=== PATIENT | female | born 1935 | race Caucasian/White ===

== ENCOUNTER → 2016-11-28 | Outpatient (REF) | payer MEDICARE ==
[~2016-11-28] MED LIST: CPAP; LOSA25TA8 PO; OMEP40CA2 PO; ONDA4INJ48 IM; ROLA1CHW PO; SYNT88TA2 PO
== END ==
LOC: M LAB REF 13:05
PROVIDERS: ATTEND Internal Medicine Medical Oncology
DX: C50.919 Malignant neoplasm of unspecified site of unspecified female breast (principal)

== ENCOUNTER → 2017-04-16 | Outpatient (CLI) | payer MEDICARE ==
--- NOTE | 2017-04-18 09:32 | DEXA ---
AP SPINE L1 - L4 1.188 -0.1 1.8 LT FEMUR TOTAL 1.023 0.1 2.2 RT FEMUR TOTAL 1.012 0.0 2.2 TOTAL BODY TOTAL OTHER DUAL FEMUR FRAX* ASSESSMENT Risk factors: Secondary osteoporosis (premature menopause). 10 year probability of fracture Major osteoporotic fracture 7.5 % Hip fracture 1.0 % COMMENTS: Normal bone densitometry of the spine and hips. FOLLOW-UP: Recommendation for the next bone density exam: 5 years. MTDD
== END ==
LOC: M WHC 11:29
PROVIDERS: ATTEND Internal Medicine Medical Oncology
DX: Z79.811 Long term (current) use of aromatase inhibitors (principal); C50.919 Malignant neoplasm of unspecified site of unspecified female breast; Z78.0 Asymptomatic menopausal state

== ENCOUNTER → 2017-09-18 | Outpatient (REF) | payer MEDICARE | LOC: M LAB REF 16:40 | PROVIDERS: ATTEND Surgery | DX: L89.894 Pressure ulcer of other site, stage 4 (principal); M85.872 Other specified disorders of bone density and structure, left ankle and foot | CPT/HCPCS: 11044; 87070; 87077; 87186; 88304; 88311; G0463 ==

== ENCOUNTER → 2017-10-03 | Outpatient (REF) | payer MEDICARE ==
[2017-10-03 13:25] LABS: MEAN CORPUSCULAR HEMOGLOBIN 29.6 pg (27.0-33.0); MEAN CORPUSCULAR HGB CONC 30.9 g/dl (32.0-36.5); PLATELET COUNT, AUTOMATED 286 10^3/uL (150-450); RED CELL DISTRIBUTION WIDTH 14.5 % (11.5-14.5); WHITE BLOOD COUNT 6.3 10^3/uL (4.0-10.0)
[2017-10-03 13:44] LABS: ERYTHROCYTE SEDIMENTATION RATE 1 mm/hr (0-30)
[2017-10-03 14:02] LABS: ALBUMIN/GLOBULIN RATIO 1.08 (1.00-1.93); ALKALINE PHOSPHATASE 99 U/L (45-117); ALT/SGPT 19 U/L (12-78); ANION GAP 6 MEQ/L (8-16); AST/SGOT 20 U/L (7-37); BILIRUBIN,TOTAL 0.5 MG/DL (0.2-1.0); BLOOD UREA NITROGEN 16 MG/DL (7-18); CALCIUM LEVEL 9.6 MG/DL (8.8-10.2); CARBON DIOXIDE LEVEL 31 MEQ/L (21-32); CHLORIDE LEVEL 103 MEQ/L (98-107); CREATININE FOR GFR 1.05 MG/DL (0.55-1.02); GLOMERULAR FILTRATION RATE 53.4 (>32); GLUCOSE, FASTING 95 MG/DL (83-110); POTASSIUM SERUM 4.6 MEQ/L (3.5-5.1); SODIUM LEVEL 140 MEQ/L (136-145); TOTAL PROTEIN 7.7 GM/DL (6.4-8.2)
== END ==
LOC: M LAB REF 13:07
PROVIDERS: ATTEND Surgery
DX: L89.894 Pressure ulcer of other site, stage 4 (principal); Z79.899 Other long term (current) drug therapy

== ENCOUNTER → 2017-10-10 | Outpatient (CLI) | payer MEDICARE | LOC: M RAD 13:07 | DX: L89.894 Pressure ulcer of other site, stage 4 (principal) | CPT/HCPCS: 93926 ==

== ENCOUNTER 2017-10-15 18:37 | Inpatient (IN) | payer MEDICARE ==
[2017-10-15] MEDS ORDERED: ALPRAZolam 0.25 MG TAB PO (21:00)
[2017-10-15 21:06] LABS: ETHYL ALCOHOL (ETHANOL) 0.003 % (0.000-0.010)
[2017-10-15 21:06] LABS: SALICYLATE LEVEL < 1.7 MG/DL (5.0-30.0)
[2017-10-15 21:57] LABS: AMPHETAMINES LEVEL URINE NEGATIVE (NEGATIVE); BARBITURATES URINE NEGATIVE (NEGATIVE); BENZODIAZEPINES URINE POSITIVE (NEGATIVE); CANNABINOIDS URINE NEGATIVE (NEGATIVE); COCAINE METABOLITE URINE NEGATIVE (NEGATIVE); METHADONE URINE NEGATIVE (NEGATIVE); OPIATES URINE NEGATIVE (NEGATIVE); PHENCYCLIDINE URINE NEGATIVE (NEGATIVE)
[2017-10-15] MEDS ORDERED: MOM 30ML SUSPENSION UDC PO (22:15)
[2017-10-15] MEDS ORDERED: MAALOX 30 ML SUSP *UDC PO (22:15)
[2017-10-15] MEDS ORDERED: ACETAMINOPHEN TAB 650MG DOSE (2X325MG) PO (22:15)
[2017-10-15] MEDS ORDERED: traZODone 50 MG TAB PO (22:15)
[2017-10-16] MEDS ORDERED: MECLIZINE 12.5 MG TAB PO (01:30)
[2017-10-16] MEDS ORDERED: IBUPROFEN 600 MG TAB PO (04:15)
[2017-10-16] MEDS: LEVOTHYROXINE 88MCG TABLET (0.088 MG) PO (06:12)
[2017-10-16 08:30] LABS: BASO % 0.5 % (0.0-1.0); EOS # 0.1 10^3/uL (0.0-0.50); EOS % 1.3 % (0.0-3.0); HEMATOCRIT 45.9 % (36.0-47.0); HEMOGLOBIN 15.3 g/dl (12.0-16.0); IMMATURE GRANULOCYTE % 0.3 % (0-0); LYMPH # 0.9 10^3/uL (1.5-4.5); LYMPH % 14.6 % (24.0-44.0); MEAN CORPUSCULAR HEMOGLOBIN 30.1 pg (27.0-33.0); MEAN CORPUSCULAR HGB CONC 33.3 g/dl (32.0-36.5); MEAN CORPUSCULAR VOLUME 90.4 fl (80.0-96.0); MONO # 0.5 10^3/uL (0.0-0.8); MONO % 8.7 % (0.0-5.0); NEUTROPHILS # 4.6 10^3/uL (1.8-7.7); NEUTROPHILS % 74.6 % (36.0-66.0); PLATELET COUNT, AUTOMATED 179 10^3/uL (150-450); RED BLOOD COUNT 5.08 10^6/uL (4.00-5.40); RED CELL DISTRIBUTION WIDTH 14.3 % (11.5-14.5); WHITE BLOOD COUNT 6.1 10^3/uL (4.0-10.0)
[2017-10-16 09:15] LABS: ALBUMIN/GLOBULIN RATIO 1.38 (1.00-1.93); ALKALINE PHOSPHATASE 81 U/L (45-117); ALT/SGPT 18 U/L (12-78); ANION GAP 7 MEQ/L (8-16); AST/SGOT 18 U/L (7-37); BILIRUBIN,TOTAL 0.8 MG/DL (0.2-1.0); BLOOD UREA NITROGEN 10 MG/DL (7-18); CALCIUM LEVEL 9.3 MG/DL (8.8-10.2); CARBON DIOXIDE LEVEL 31 MEQ/L (21-32); CHLORIDE LEVEL 107 MEQ/L (98-107); CREATININE FOR GFR 0.77 MG/DL (0.55-1.02); GLOMERULAR FILTRATION RATE > 60.0 (>32); GLUCOSE, FASTING 138 MG/DL (83-110); POTASSIUM SERUM 3.3 MEQ/L (3.5-5.1); SODIUM LEVEL 145 MEQ/L (136-145); TOTAL PROTEIN 6.9 GM/DL (6.4-8.2)
[2017-10-16] MEDS: DONEPEZIL 5 MG TAB PO (09:57)
[2017-10-16] MEDS: LETROZOLE 2.5 MG TAB PO (09:57)
[2017-10-16] MEDS: DULoxetine 30 MG CAP (CYMBALTA) PO (09:58)
[2017-10-16] MEDS: PANTOPRAZOLE 40MG TAB (PROTONIX) PO (09:58)
[2017-10-16] MEDS: LOSARTAN 25 MG TAB PO (09:58)
[2017-10-16] MEDS: ALPRAZolam 0.25 MG TAB PO ×2 (09:59→21:45)
[2017-10-16] MEDS: POTASSIUM CHLORIDE 10 MEQ SR TABLET PO (13:20)
[2017-10-16] MEDS: SUCRALFATE SUSP 1GM/10ML UD PO ×3 (13:21→21:46)
[2017-10-16 13:49] LABS: KETONE, URINE AUTO RFX 1+ mg/dL (NEGATIVE); MUCUS, URINE RFX SMALL (NEGATIVE); NITRITE, URINE AUTO RFX NEGATIVE (NEGATIVE); RBC, URINE AUTO RFX 1 /HPF (0-3); SPECIFIC GRAVITY UR AUTO RFX 1.019 (1.002-1.035); SQUAM EPITHELIAL CELL UR AURFX 1 /HPF (0-6); WBC, URINE AUTO RFX 4 /HPF (0-3)
[2017-10-16 13:54] LABS: LEUKOCYTE ESTERASE UR AUTO RFX TRACE (NEGATIVE)
[2017-10-16] MEDS: [UNRECOGNIZED DRUG - OTHER] TOP (18:54)
[2017-10-16] MEDS: FAMOTIDINE 20 MG TAB PO (21:45)
[2017-10-16] MEDS: AMITRIPTYLINE 10 MG TAB PO (21:45)
[2017-10-17] MEDS: LEVOTHYROXINE 88MCG TABLET (0.088 MG) PO (06:11)
[2017-10-17] MEDS: SUCRALFATE SUSP 1GM/10ML UD PO ×2 (06:49→11:31)
[2017-10-17 07:57] LABS: ANION GAP 5 MEQ/L (8-16); BLOOD UREA NITROGEN 9 MG/DL (7-18); CALCIUM LEVEL 8.9 MG/DL (8.8-10.2); CARBON DIOXIDE LEVEL 31 MEQ/L (21-32); CHLORIDE LEVEL 108 MEQ/L (98-107); CREATININE FOR GFR 0.66 MG/DL (0.55-1.02); GLOMERULAR FILTRATION RATE > 60.0 (>32); GLUCOSE, FASTING 101 MG/DL (83-110); POTASSIUM SERUM 3.5 MEQ/L (3.5-5.1); SODIUM LEVEL 144 MEQ/L (136-145)
[2017-10-17] MEDS: PANTOPRAZOLE 40MG TAB (PROTONIX) PO (09:25)
[2017-10-17] MEDS: ALPRAZolam 0.25 MG TAB PO (09:25)
[2017-10-17] MEDS: DULoxetine 30 MG CAP (CYMBALTA) PO (09:26)
[2017-10-17] MEDS: LETROZOLE 2.5 MG TAB PO (09:26)
[2017-10-17] MEDS: DONEPEZIL 5 MG TAB PO (09:26)
[2017-10-17] MEDS: LOSARTAN 25 MG TAB PO (09:33)
[2017-10-17] MEDS: [UNRECOGNIZED DRUG - OTHER] TOP (09:41)
[2017-10-17] MEDS ORDERED: GABAPENTIN 100 MG CAP PO (21:00)
== END 2017-10-17 12:30 | disposition home or self-care (01) | DRG 881 ==
LOC: M ED 18:37 → M ED INP 22:07 → M PSY 23:31
PROVIDERS: Psychiatry & Neurology Psychiatry
DX: F43.21 Adjustment disorder with depressed mood (principal); M86.9 Osteomyelitis, unspecified; L97.528 Non-pressure chronic ulcer of other part of left foot with other specified severity; F41.1 Generalized anxiety disorder; F41.0 Panic disorder [episodic paroxysmal anxiety]; F03.90 Unspecified dementia, unspecified severity, without behavioral disturbance, psychotic disturbance, mood disturbance, and anxiety; E03.9 Hypothyroidism, unspecified; E87.6 Hypokalemia; G47.33 Obstructive sleep apnea (adult) (pediatric); K21.9 Gastro-esophageal reflux disease without esophagitis; I10 Essential (primary) hypertension; Z63.4 Disappearance and death of family member; Z79.899 Other long term (current) drug therapy; Z85.3 Personal history of malignant neoplasm of breast; Z86.73 Personal history of transient ischemic attack (TIA), and cerebral infarction without residual deficits; Z99.89 Dependence on other enabling machines and devices; Z90.710 Acquired absence of both cervix and uterus; Z90.49 Acquired absence of other specified parts of digestive tract; Z98.49 Cataract extraction status, unspecified eye; Z90.13 Acquired absence of bilateral breasts and nipples

== ENCOUNTER → 2017-11-18 | Outpatient (REF) | payer MEDICARE ==
[2017-11-18 13:34] LABS: BASO % 0.4 % (0.0-1.0); EOS # 0.1 10^3/uL (0.0-0.50); EOS % 1.7 % (0.0-3.0); HEMOGLOBIN 14.2 g/dl (12.0-16.0); IMMATURE GRANULOCYTE % 0.4 % (0-0); LYMPH # 1.1 10^3/uL (1.5-4.5); LYMPH % 20.2 % (24.0-44.0); MEAN CORPUSCULAR HEMOGLOBIN 29.3 pg (27.0-33.0); MEAN CORPUSCULAR HGB CONC 32.3 g/dl (32.0-36.5); MEAN CORPUSCULAR VOLUME 90.7 fl (80.0-96.0); MONO # 0.6 10^3/uL (0.0-0.8); MONO % 10.6 % (0.0-5.0); NEUTROPHILS # 3.5 10^3/uL (1.8-7.7); NEUTROPHILS % 66.7 % (36.0-66.0); PLATELET COUNT, AUTOMATED 190 10^3/uL (150-450); RED BLOOD COUNT 4.85 10^6/uL (4.00-5.40); RED CELL DISTRIBUTION WIDTH 13.5 % (11.5-14.5); WHITE BLOOD COUNT 5.3 10^3/uL (4.0-10.0)
[2017-11-18 13:50] LABS: C REACTIVE PROTEIN QUANTITATIV < 0.30 MG/DL (0.00-0.30)
[2017-11-18 13:53] LABS: ERYTHROCYTE SEDIMENTATION RATE 3 mm/hr (0-30)
== END ==
LOC: M SFHCPLAZ 11:28
DX: M86.172 Other acute osteomyelitis, left ankle and foot (principal)
CPT/HCPCS: 86140

== ENCOUNTER → 2018-06-10 | Outpatient (REF) | payer MEDICARE ==
[2018-06-10 14:21] LABS: TOTAL 25(OH) VITAMIN D 31.8 NG/ML (30.0-100.0)
== END ==
LOC: M LAB REF 13:28
DX: Z85.3 Personal history of malignant neoplasm of breast (principal); E55.9 Vitamin D deficiency, unspecified
CPT/HCPCS: 82306

== ENCOUNTER → 2018-07-23 | Outpatient (REF) | payer MEDICARE | LOC: M LAB REF 17:52 | DX: L89.894 Pressure ulcer of other site, stage 4 (principal); L98.491 Non-pressure chronic ulcer of skin of other sites limited to breakdown of skin | CPT/HCPCS: 88304 ==

== ENCOUNTER → 2018-09-14 | Outpatient (CLI) | payer MEDICARE, MEDICAID ==
[2018-09-14 10:54] LABS: HEMATOCRIT 46.7 % (36.0-47.0); HEMOGLOBIN 14.9 g/dl (12.0-15.5); MEAN CORPUSCULAR HEMOGLOBIN 29.6 pg (27.0-33.0); MEAN CORPUSCULAR HGB CONC 31.9 g/dl (32.0-36.5); MEAN CORPUSCULAR VOLUME 92.7 fl (80.0-96.0); PLATELET COUNT, AUTOMATED 171 10^3/uL (150-450); RED BLOOD COUNT 5.04 10^6/uL (4.00-5.40); RED CELL DISTRIBUTION WIDTH 13.8 % (11.5-14.5); WHITE BLOOD COUNT 6.2 10^3/uL (4.0-10.0)
[2018-09-14 11:18] LABS: ANION GAP 8 MEQ/L (8-16); BLOOD UREA NITROGEN 11 MG/DL (7-18); CARBON DIOXIDE LEVEL 30 MEQ/L (21-32); CHLORIDE LEVEL 107 MEQ/L (98-107); CREATININE FOR GFR 0.77 MG/DL (0.55-1.30); GLOMERULAR FILTRATION RATE > 60.0 (>32); GLUCOSE, FASTING 88 MG/DL (70-100); SODIUM LEVEL 145 MEQ/L (136-145)
== END ==
LOC: M LAB 10:21
DX: Z01.812 Encounter for preprocedural laboratory examination (principal); Z79.899 Other long term (current) drug therapy
CPT/HCPCS: 80048

== ENCOUNTER 2018-09-23 11:47 | Day surgery (SDC) | payer MEDICARE, MEDICAID ==
[2018-09-23] MEDS: BUPIVACAINE HCL 0.5% 10 ML VIAL As Ordered (12:45)
[2018-09-23] MEDS: LIDOCAINE 1% MDV 20ML VIAL As Ordered (12:45)
[2018-09-23] MEDS ORDERED: ONDANSETRON 4MG/2ML VIAL (J2405) As Ordered (13:01)
[2018-09-23] MEDS ORDERED: LIDOCAINE 2% INJ 100 MG/5 ML SDV (FOR ANES.) As Ordered (13:01)
[2018-09-23] MEDS ORDERED: PROPOFOL 200 MG/20 ML VIAL As Ordered (13:01)
[2018-09-23] MEDS ORDERED: fentaNYL 100 MCG/2 ML INJECTION (J3010) As Ordered (13:01)
[2018-09-23] MEDS ORDERED: MIDAZOLAM INJ 2 MG/2 ML VIAL (J2250) As Ordered (13:01)
== END 2018-09-23 15:05 | disposition home or self-care (01) ==
LOC: M SDC 11:47
DX: M86.672 Other chronic osteomyelitis, left ankle and foot (principal); L89.894 Pressure ulcer of other site, stage 4; I10 Essential (primary) hypertension; E03.9 Hypothyroidism, unspecified; F41.9 Anxiety disorder, unspecified; F32.9 Major depressive disorder, single episode, unspecified; K21.9 Gastro-esophageal reflux disease without esophagitis; G47.33 Obstructive sleep apnea (adult) (pediatric); K44.9 Diaphragmatic hernia without obstruction or gangrene; G90.09 Other idiopathic peripheral autonomic neuropathy; R29.898 Other symptoms and signs involving the musculoskeletal system; F03.90 Unspecified dementia, unspecified severity, without behavioral disturbance, psychotic disturbance, mood disturbance, and anxiety; I69.911 Memory deficit following unspecified cerebrovascular disease; R06.83 Snoring; J30.89 Other allergic rhinitis; Z88.5 Allergy status to narcotic agent; Z85.3 Personal history of malignant neoplasm of breast; Z79.899 Other long term (current) drug therapy; Z90.13 Acquired absence of bilateral breasts and nipples; Z92.3 Personal history of irradiation
CPT/HCPCS: 28122

== ENCOUNTER 2020-07-13 10:24 | Inpatient (IN) | payer MEDICARE ==
[~2020-07-13] VITALS: Ht 162.6 cm; Wt 92.2 kg
[~2020-07-13 10:24] MED LIST changes: +ACET1TAB55 PO; +ACET500T15 PO; +ACIDTAB3 PO; +AMIT10TA PO; +ARIC1TAB PO; +BUSP5TA PO; +CARA1TAB6 PO; +CARB25TA9 PO; +CYMB60CA3 PO; +DIOV40TA PO; +DULO30CA9 PO; +FAMO20TA PO; +FEMA2.5T4 PO; +GABA-1171 PO; +GABA-843 PO; +IBUP-1022 PO; +KEFL500C17 PO; +LETR2.5T2 PO; +LOPE2CA PO; +LOSA25TA14 PO; -LOSA25TA8 PO; +MECL12.589 PO; +META0.52 PO; +NEXI20CA PO; +OMEP-358 PO; -OMEP40CA2 PO; +OMEP40CA97 PO; +ONDA4INJ4 IM; -ONDA4INJ48 IM; +PANT40TA29 PO; +RANI15TA PO; +SUCR1ORA2 PO; +SUCR1TA PO; +VITA2000 PO; +XANA0.25 PO; +ZOFR4TAB16 PO
[2020-07-13] MEDS ORDERED: PANT40TA29 PO (10:42)
[2020-07-13] MEDS ORDERED: VALS1TAB67 PO (10:42)
[2020-07-13] MEDS ORDERED: AMLO1TAB24 PO (10:42)
[2020-07-13] MEDS ORDERED: POTA20TA6 PO (10:42)
[2020-07-13] MEDS ORDERED: QUET5TAB PO (10:42)
[2020-07-13 11:59] LABS: BASO % 0.2 % (0.0-1.0); EOS % 0.2 % (0.0-3.0); HEMATOCRIT 45.7 % (36.0-47.0); HEMOGLOBIN 14.7 g/dl (12.0-15.5); LYMPH % 9.2 % (24.0-44.0); MEAN CORPUSCULAR HEMOGLOBIN 30.4 pg (27.0-33.0); MEAN CORPUSCULAR HGB CONC 32.2 g/dl (32.0-36.5); MEAN CORPUSCULAR VOLUME 94.6 fl (80.0-96.0); MONO # 1.9 10^3/uL (0.0-0.8); NEUTROPHILS # 7.7 10^3/uL (1.5-8.5); NEUTROPHILS % 72.1 % (36.0-66.0); PLATELET COUNT, AUTOMATED 166 10^3/uL (150-450); RED BLOOD COUNT 4.83 10^6/uL (4.00-5.40); WHITE BLOOD COUNT 10.7 10^3/uL (4.0-10.0)
[2020-07-13 12:11] LABS: INR 1.04; PROTHROMBIN TIME 13.8 SECONDS (12.5-14.3)
[2020-07-13 12:21] LABS: ERYTHROCYTE SEDIMENTATION RATE 9 mm/hr (0-30)
[2020-07-13 12:33] LABS: ALBUMIN 3.5 GM/DL (3.2-5.2); ALT/SGPT 25 U/L (12-78); BLOOD UREA NITROGEN 9 MG/DL (7-18); CALCIUM LEVEL 9.3 MG/DL (8.8-10.2); CARBON DIOXIDE LEVEL 31 MEQ/L (21-32); CHLORIDE LEVEL 103 MEQ/L (98-107); CREATININE FOR GFR 0.84 MG/DL (0.55-1.30); GLOMERULAR FILTRATION RATE > 60.0 (>32); GLUCOSE, FASTING 108 MG/DL (70-100); POTASSIUM SERUM 5.2 MEQ/L (3.5-5.1); SODIUM LEVEL 136 MEQ/L (136-145); TOTAL PROTEIN 7.2 GM/DL (6.4-8.2)
--- NOTE | 2020-07-13 12:45 | REPVR ---
PROCEDURE INFORMATION: Exam: XR Left Foot Complete Exam date and time: 07/13/2020 12:30 PM Age: 84 years old Clinical indication: Condition or disease; Foot deformities; Type not specified; Left; Prior surgery; Surgery date: 6+ months; Surgery type: Granddaughter said she has had foot trouble her entire life with bones removed many years ago. Did not know her underlying disease process. ; Additional info: Swelling of foot, ulcer to 1st toe TECHNIQUE: Imaging protocol: XR Left foot. Views: 3 or more views. COMPARISON: XA Foot, Ap, Lat 09/23/2018 2:01 PM FINDINGS: Bones/joints: There has been transmetatarsal amputations involving the 4th and 5th digits. There has been phalangeal resection of the 3rd digit. The toes are clenched of the 1st and 2nd digits. There is diffuse osteopenia. Extensive arthritic changes seen throughout the midfoot, hindfoot and forefoot including the tibiotalar joint. Soft tissues: There is no soft tissue air or definite ulceration. IMPRESSION: Osteopenia, arthritis and prior amputations. Electronically signed by: Mendoza Woody On 07/13/2020 12:44:43 PM
[2020-07-13] MEDS ORDERED: BACT800T5 PO (12:54)
[2020-07-13] MEDS ORDERED: DOCU100C16 PO (12:54)
[2020-07-13] MEDS ORDERED: GABA-1171 PO (12:54)
[2020-07-13] MEDS ORDERED: PIPERACILLIN/TAZOBACTAM SOD 3.375 GM in D5W MINI-BAG PLUS 50 ML IV ONE (13:00)
[2020-07-13] MEDS ORDERED: VANCOMYCIN HCL 750 MG, VIAL MATE ADAPTER 1 EACH in D5W 250 ML IV ONE ×6 (13:00)
[2020-07-13] MEDS ORDERED: VANCOMYCIN HCL 2,000 MG in D5W 500 ML IV ONE (13:00)
[2020-07-13] MEDS ORDERED: VITA500T41 PO (13:02)
[2020-07-13] MEDS ORDERED: ASPI81TA86 PO (13:02)
[2020-07-13] MEDS ORDERED: NYST10CR TOP (13:02)
[2020-07-13 16:15] VITALS: BP 146/56
--- NOTE | 2020-07-13 17:09 | HPEPDOC ---
[facility] Medical History & Physical Date of Admission Jul 13, 2020 Date of Service: Jul 13, 2020 History and Physical CHIEF COMPLAINT: left hallux nonhealing ulcer / osteomyelitis HISTORY OF PRESENTING ILLNESS: (history obtained from son-in-law at the bedside) 84 y/o F with chronically deformed left foot, Dementia, bilateral breast cancer, cared for by her daughter and son-in-law, but lives in assisted living housing, presents for amputation of the left hallux due to nonhealing ulcer with failed outpatient antibiotics and debridement. Patient was followed at the wound care center by Dr. Ge in the past,and had left partial incisional metatarsals of the 4-5 digits in 09/[address] Addison. She was seen in her head well puller's office today, and referred to [facility] for admission for amputation of the left hallux. She denies fever, chills, pain, purulent discharge,or worsening edema. In the ER, she was afebrile, normal wbc and esr, but 3.7 crp, given iv vanco and iv zosyn with plans for amputation on Friday by Dr. Addison PMHx: Hypertension Hypothyroidism Dementia/memory loss Anxiety Depression GERD/HH/chronic nausea History of breast cancer. right mastectomy left lumpectomy with radiation and left mastectomy due to local recurrence Chronic left foot wound. Stage IV ulcer. Osteomyelitis. H/O TIA EMILIE. CPAP. H/O neuropathy PSHX: Hysterectomy cholecystectomy cataract surgery Right mastectomy 1996 Left mastectomy 2017 Amputation left 3 through 5 toes. Chronic left foot wound status post debridement as per Dr. Ge SOCHX: Resides in:Assisted living Marital Status: Kids: 4 Employment: Retired Tobacco use: Denies ETOH: Denies Illicit Drugs: Denies IV Drug Use: Denies Tattoos done unprofessionally: Denies HCP-daughter and son-in-law FAMHX: Siblings: One sister , unknown Children: Alive, well ROS: As noted in HPI, otherwise 11pt ROS of systems reviewed and unremarkable. PE: VITALS : SEE BELOW GEN: 81 yo F, appears stated age. Well-nourished, well developed. No acute distress. Alert and oriented x 2. Pleasant, interactive. no respiratory distress. speaks in full sentences. HEENT: no pallor or jaundice. face is symmetric. tongue is midline. Normocephalic, atraumatic. Pupils are equal, round, and reactive to light. Extraocular movements are intact. No nystagmus appreciated. Sclera are nonicteric. no jaundice. Conjunctiva without injection. Nose midline. Nasal turbinates without bogginess. EACs both patent BL. TMs both visualized and [place]ehan with good cone of light, no bulging or erythema. No facial asymmetry. Moist mucous membranes. Dentition fair. Pharynx pink and moist, no cobblestoning. Neck supple, trachea midline. No lymphadenopathy or thyromegaly appreciated. CHEST: Regular rate and rhythm, +S1, +S2. AEBE. LUNGS: Clear to auscultation bilaterally. No wheezes, rales, or rhonchi. Breathing appears symmetric and easy. Patient is speaking in full sentences. No accessory muscle use. ABD: Round, soft, non-tender, non-distended. +Bowel sounds throughout. No rebound or guarding. No costovertebral angle tenderness. EXT: Pulses 2+ bilaterally dorsalis pedis and radial. (+) b/l 1+ pitting edema. left 4-5 partial metatarsal amputation. left medial hallux ulcer with serous drainage no purulence some erythema no induration nontender. SKIN: [place], dry, warm. No rashes. LABORATORY DATA: see below ASSESSMENT AND PLAN: 84F with nonhealing left toe ulcer / osteomyelitis sent to [facility] for amputation. 1.Left hallux osteomyelitis- normal esr wbc afebrile, but abn crp. received iv vanco and iv zosyn in ER renally dosed. will continue on iv vancomycin and iv ceftriaxone, bacid, elevate LE while supine. daily dressing changes per head well puller recommendation. Dr. Addison consulted for amputation scheduled for Friday morning. MRI left foot as the patient will not tolerate it. ASA discontinued temporarily preoperatively. compression stockings for now. PT/OT postoperatively 2.Chronic peripheral neuropathy-has orthotic shoes, but increased risk of injury due to numbness. 3. Preoperative Medical clearance-hold aspirin. denies acute ischemic symptoms such as sob, chest pain, rpessure, tightness, and has no signs of chf. She is medically optimized to proceed to surgery on Friday. no anticoagulation or antiplatelets. 4. Hyperkalemia- calcium gluconate, kayexalate, repeat bmp. 5. Hypertension-resume home meds with holding parameters 6. Hypothyroidism-on synthroid 7. Chronic Dementia/memory loss-resumed home meds. at risk of sundowning. If patient becomes agitated or combative, avoid sedatives or hypnotics. Family is willing to calm the patient down, and requests to be called. 8. Anxiety/Depression, chronic-no suicidal ideation 9. GERD/HH-on PPI 10. History of breast cancer. right mastectomy left lumpectomy with radiation and left mastectomy due to local recurrence, on surveillance at the [facility] 11. H/O TIA-due to planned left hallux amputation, hold ASA. 12. Obesity BMI 34.9 EMILIE. CPAP-complicating care code status: DNR DNI. Vital Signs Vital Signs Date Time Temp Pulse Resp B/P (MAP) Pulse Ox O2 Delivery O2 Flow Rate FiO2 07/13/20 16:03 98.0 80 18 136/70 (92) 98 Room Air Laboratory Data Labs 24H Laboratory Tests 2 07/13/20 11:40: Immature Granulocyte % (Auto) 0.3, Neutrophils (%) (Auto) 72.1H, Lymphocytes (%) (Auto) 9.2L, Monocytes (%) (Auto) 18.0H, Eosinophils (%) (Auto) 0.2, Basophils (%) (Auto) 0.2, Neutrophils # (Auto) 7.7, Lymphocytes # (Auto) 1.0L, Monocytes # (Auto) 1.9H, Eosinophils # (Auto) 0.0, Basophils # (Auto) 0.0, Nucleated Red Blood Cells % (auto) 0.0, Erythrocyte Sedimentation Rate 9, Prothrombin Time 13.8, Prothromb Time International Ratio 1.04, Anion Gap 2L, Glomerular Filtration Rate > 60.0, Lactic Acid Level 1.5, Calcium Level 9.3, Total Bilirubin 1.0, Aspartate Amino Transf (AST/SGOT) 44H, Alanine Aminotransferase (ALT/SGPT) 25, Alkaline Phosphatase 101, C-Reactive Protein, Quantitative 3.70H, Total Protein 7.2, Albumin 3.5, Albumin/Globulin Ratio 0.9L 07/13/20 13:15: Urine Color YELLOW, Urine Appearance CLEAR, Urine pH 7.0, Urine Specific [place] 1.012, Urine Protein NEGATIVE, Urine Glucose (UA) NEGATIVE, Urine Ketones TRACEH, Urine Blood NEGATIVE, Urine Nitrite NEGATIVE, Urine Bilirubin NEGATIVE, Urine Urobilinogen 4.0H, Urine Leukocyte Esterase TRACEH, Urine WBC (Auto) 3, Urine RBC (Auto) 2, Urine Hyaline Casts (Auto) 0, Urine Bacteria (Auto) NEGATIVE, Urine Squamous Epithelial Cells 1, Urine Sperm (Auto) CBC/BMP Laboratory Tests 07/13/20 11:40 Microbiology Microbiology 07/13/20 Blood Culture, Received Pending 07/13/20 Urine Culture, Received Pending 07/13/20 Blood Culture, Received Pending Home Medications Scheduled Alprazolam (Xanax) 0.25 Mg Tab, 0.25 MG PO BID Amlodipine Besylate (Amlodipine Besylate) 5 Mg Tablet, 5 MG PO DAILY Aspirin (Aspir 81) 81 Mg Tablet.dr, 81 MG PO DAILY Buspirone HCl (Buspirone HCl) 5 Mg Tab, 5 MG PO TID Cyanocobalamin (Vitamin B-12) (Vitamin B-12) 500 Mcg Tablet, 500 MCG PO DAILY Docusate Sodium (Docusate Sodium) 100 Mg Capsule, 100 MG PO BID Donepezil HCl (Aricept) 5 Mg Tab, 5 MG PO QHS Duloxetine Hcl (Cymbalta) 60 Mg Cap, 60 MG PO DAILY Gabapentin (Gabapentin) 100 Mg Capsule, 100 MG PO TID Levothyroxine Sodium (Synthroid) 88 Mcg Tab, 88 MCG PO DAILY Nystatin (Nystatin) 15 Gm Cream..g., 1 APLCT TOP BID APPLY TO RASH ON LEG Pantoprazole Sodium (Pantoprazole Sodium) 40 Mg Tablet.dr, 40 MG PO DAILY Potassium Chloride (Potassium Chloride) 20 Meq Tab.er.prt, 20 MEQ PO QPM Quetiapine Fumarate (Quetiapine Fumarate) 50 Mg Tablet, 50 MG PO QHS Sucralfate (Carafate) 1 Gm Tab, 1 GM PO BID 1 HOUR BEFORE BREAKFAST AND DINNER Sulfamethoxazole/Trimethoprim (Bactrim Ds Tablet) 1 Each Tablet, 1 TAB PO BID FOR 5 DAYS, STARTED 07/12 AT 1700 Valsartan (Valsartan) 160 Mg Tablet, 160 MG PO DAILY Allergies Coded Allergies: SEASONAL ALLERGIES (Verified Allergy, Mild, 09/16/18) A-FIB/CHADSVASC A-FIB History Current/History of A-Fib/PAF?: No Current PO Anticoag Therapy: No Age/Risk Factor Scoring CHADSVASC: CHADSVASC Response (Comments) Value Age Risk Factor Age >/= 75 years old 2 Gender Risk Factor Female 1 Hx of CHF No 0 Hx of HTN Yes 1 Hx of Stroke/TIA/or VTE Yes 2 Hx of Diabetes No 0 Hx of Vascular Disease No 0 Total 6 Treatment Treatment ordered: NONE Reason Anticoagulant not given: Not indicated/[id number] LILLIANA YBARRA MD Jul 13, 2020 16:56
[2020-07-13] MEDS: SUCRALFATE 1 GM TAB PO SCH (18:29)
[2020-07-13] MEDS: busPIRone 5 MG TAB PO SCH (20:02)
[2020-07-13] MEDS: DONEPEZIL 5 MG TAB PO SCH (20:02)
[2020-07-13] MEDS: QUEtiapine FUMARATE 50 MG TAB PO SCH (20:02)
[2020-07-13] MEDS: ALPRAZolam 0.25 MG TAB PO SCH (20:02)
[2020-07-13] MEDS: DOCUSATE SODIUM 100 MG CAP PO SCH (20:02)
[2020-07-13] MEDS: GABAPENTIN 100 MG CAP PO SCH (20:03)
[2020-07-13] MEDS: POTASSIUM CHLORIDE 10 MEQ SR TABLET PO SCH (20:56)
[2020-07-13 22:00] VITALS: BP 140/58
[2020-07-14] MEDS: LEVOTHYROXINE 88MCG TABLET (0.088 MG) PO SCH (05:49)
[2020-07-14] MEDS: VANCOMYCIN HCL 1,000 MG, VIAL MATE ADAPTER 1 EACH in D5W 250 ML IV SCH (05:49)
[2020-07-14 06:00] VITALS: BP 136/57
[2020-07-14 06:38] LABS: BASO % 0.3 % (0.0-1.0); EOS # 0.1 10^3/uL (0.0-0.5); HEMATOCRIT 43.1 % (36.0-47.0); HEMOGLOBIN 13.8 g/dl (12.0-15.5); LYMPH # 1.2 10^3/uL (1.5-5.0); LYMPH % 15.4 % (24.0-44.0); MEAN CORPUSCULAR HEMOGLOBIN 30.3 pg (27.0-33.0); MEAN CORPUSCULAR VOLUME 94.7 fl (80.0-96.0); MONO # 1.3 10^3/uL (0.0-0.8); MONO % 15.9 % (0.0-5.0); NEUTROPHILS # 5.3 10^3/uL (1.5-8.5); NEUTROPHILS % 66.9 % (36.0-66.0); PLATELET COUNT, AUTOMATED 174 10^3/uL (150-450); RED BLOOD COUNT 4.55 10^6/uL (4.00-5.40)
[2020-07-14 07:08] LABS: BLOOD UREA NITROGEN 9 MG/DL (7-18); CALCIUM LEVEL 8.8 MG/DL (8.8-10.2); CARBON DIOXIDE LEVEL 29 MEQ/L (21-32); CHLORIDE LEVEL 106 MEQ/L (98-107); CREATININE FOR GFR 0.81 MG/DL (0.55-1.30); GLOMERULAR FILTRATION RATE > 60.0 (>32); GLUCOSE, FASTING 97 MG/DL (70-100); POTASSIUM SERUM 3.9 MEQ/L (3.5-5.1); SODIUM LEVEL 141 MEQ/L (136-145)
[2020-07-14] MEDS: GABAPENTIN 100 MG CAP PO SCH ×3 (07:53→20:25)
[2020-07-14] MEDS: DOCUSATE SODIUM 100 MG CAP PO SCH ×2 (07:53→20:25)
[2020-07-14] MEDS: DULoxetine 30 MG CAP (CYMBALTA) PO SCH (07:53)
[2020-07-14] MEDS: busPIRone 5 MG TAB PO SCH ×3 (07:53→20:32)
[2020-07-14] MEDS: SUCRALFATE 1 GM TAB PO SCH ×2 (07:53→17:04)
[2020-07-14] MEDS: PANTOPRAZOLE 40MG TAB (PROTONIX) PO SCH (07:53)
[2020-07-14] MEDS: ALPRAZolam 0.25 MG TAB PO SCH ×2 (07:53→20:25)
[2020-07-14] MEDS: CYANOCOBALAMIN 500 MCG TAB PO SCH (07:53)
[2020-07-14] MEDS: VALSARTAN 80 MG TAB (DIOVAN) PO SCH (07:54)
[2020-07-14] MEDS: amLODIPine 5 MG TAB PO SCH (07:54)
--- NOTE | 2020-07-14 13:26 | IPNPDOC ---
Date Seen The patient was seen on 07/14/20. Progress Note SUBJECTIVE: Patient seen, examined, etc. it is been reviewed. Patient was tearful this morning and wanted to go home, "I want to go home." She denies any pain. Has had no fever or chills overnight. She has been given intravenous antibiotics overnight with ceftriaxone and vancomycin with plans for amputation of the left hallux in the morning by Dr. Brina Menendez. Patient otherwise denies any lightheadedness, dizziness, shortness of breath, chest pain, pressure, tightness. Denies any nausea, vomiting, abdominal pain, tolerating her diet, but has not ordered breakfast this morning prior and had been made aware that the patient will need assistance order her breakfast. Patient will be kept nothing by mouth after midnight and will be placed in intravenous fluids for surgery on 07/15/2020 OBJECTIVE: PHYSICAL EXAMINATION: VITALS : SEE BELOW GEN: 81 yo F, tearful, but no respiratory distress Alert and oriented x 2. Pleasant, interactive. no respiratory distress. , Slightly agitated, but not combative HEENT:. Pupils are equal, round, and reactive to light. Extraocular movements are intact. No nystagmus appreciated. Sclera are nonicteric. no jaundice. Conjunctiva without injection. Nose midline. Nasal turbinates without bogginess. No facial asymmetry. Pharynx pink and moist, no cobblestoning. Neck supple, trachea midline. No lymphadenopathy or thyromegaly appreciated. CHEST: Regular rate and rhythm, +S1, +S2. AEBE. LUNGS: Clear to auscultation bilaterally. No wheezes, rales, or rhonchi. Breathing appears symmetric and easy. Patient is speaking in full sentences. No accessory muscle use. ABD: Round, soft, non-tender, non-distended. +Bowel sounds throughout. No rebound or guarding. No costovertebral angle tenderness. EXT: Pulses 2+ bilaterally dorsalis pedis and radial. (+) b/l 1+ pitting edema. left 4-5 partial metatarsal amputation. left medial hallux ulcer with serous drainage no purulence some erythema no induration nontender. SKIN: [place], dry, warm. No rashes. LABORATORY DATA: see below ASSESSMENT AND PLAN: 84 y/o F with chronically deformed left foot, Dementia, bilateral breast cancer, cared for by her daughter and son-in-law, but lives in assisted living housing, presents for amputation of the left hallux due to nonhealing ulcer with failed outpatient antibiotics and debridement. Patient was followed at the wound care center by Dr. Ge in the past,and had left partial incisional metatarsals of the 4-5 digits in 09/[address] Addison. She was seen in her elementary supervisor's office today, and referred to [facility] for admission for amputation of the left hallux. She denies fever, chills, pain, purulent discharge,or worsening edema. In the ER, she was afebrile, normal wbc and esr, but 3.7 crp, given iv vanco and iv zosyn with plans for amputation on Friday by Dr. Addison 1.Left hallux osteomyelitis- patient was reluctant to be admitted yesterday in the emergency room, patient's healthcare proxy son-in-law at the bedside. Spoke with Dr. Brina Menendez again about proceeding with amputation of the left hallux on Friday. Patient was convinced to stay in the hospital. Her IV antibiotics and amputation. Patient's daughter recently had a cholecystectomy and unable to come into the hospital. She is currently on intravenous vancomycin and ceftriaxone until amputation can be completed and will be changed to oral antibiotics at this time. Denies she is afebrile, no white count, CRP is only slightly elevated at 3.7 on hospital admission. Pharmacy has been consulted for renal dosing of all her IV antibiotics were also monitoring for any antibiotic-induced diarrhea or possible C. difficile is currently investigating encouraged to eat yogurt. S he will be kept nothing by mouth after midnight for surgery in the morning with her elementary supervisor, Dr. Brina Menendez. 2.Chronic peripheral neuropathy-has orthotic shoes, but increased risk of injury due to numbness. 3. Preoperative Medical patient is medically optimized to proceed to the operating room on Friday. We have held her aspirin on admission. She currently denies any acute ischemic complaints such as chest pain, pressure, tightness, lightheadedness or dizziness. She has had no history of coronary artery disease, [place], congestive heart failure to require further evaluation. 4. Hyperkalemia, resolved- received calcium gluconate, kayexalate yesterday 5. Hypertension-resumed home meds with holding parameters 6. Hypothyroidism-on synthroid 7. Chronic Dementia/memory patient is having difficulty remaining in the hospital without being agitated and distressed. We have spoken about her high risk of agitation and wanting to sign out AGAINST MEDICAL ADVICE with the patient's family on hospital admission yesterday. We are willing to make an exception to the visiting hours of 5:58 PM and allow the family to stay with her 24. 7 if needed. We are trying to avoid any sedatives or hypnotics. She remains cooperative, not belligerent with staff and has not been combative if this were to happen. Family will be called and will be asked to provide assistance in calming her down and potentially supervising while she is in the hospital to avoid chemical restraints and mechanical restraints. 8. Anxiety/Depression, chronic-no suicidal ideation 9. GERD/HH-on PPI 10. History of breast cancer. right mastectomy left lumpectomy with radiation and left mastectomy due to local recurrence, on surveillance at the [facility] 11. H/O TIA-due to planned left hallux amputation, hold ASA. 12. Obesity BMI 34.9 EMILIE. CPAP-complicating care code status: DNR DNI. VS, I&O, 24H, [facility] Vital Signs/I&O Vital Signs Date Time Temp Pulse Resp B/P (MAP) Pulse Ox O2 Delivery O2 Flow Rate FiO2 07/14/20 07:54 133/92 07/14/20 07:54 81 07/14/20 06:00 98.7 20 91 Room Air I&O- Last 24 Hours up to 6 AM 07/14/20 06:00 Intake Total 675 ml Output Total 1100 ml Balance -425 ml Laboratory Data 24H LABS Laboratory Tests 2 07/14/20 05:36: Immature Granulocyte % (Auto) 0.5, Neutrophils (%) (Auto) 66.9H, Lymphocytes (%) (Auto) 15.4L, Monocytes (%) (Auto) 15.9H, Eosinophils (%) (Auto) 1.0, Basophils (%) (Auto) 0.3, Neutrophils # (Auto) 5.3, Lymphocytes # (Auto) 1.2L, Monocytes # (Auto) 1.3H, Eosinophils # (Auto) 0.1, Basophils # (Auto) 0.0, Nucleated Red Blood Cells % (auto) 0.0, Anion Gap 6L, Glomerular Filtration Rate > 60.0, Calcium Level 8.8 10/2/20 09:26: Coronavirus (COVID-19)(PCR) NEGATIVE CBC/BMP Laboratory Tests 07/14/20 05:36 Microbiology Microbiology 07/13/20 Blood Culture, Received Pending 07/13/20 Urine Culture - Final, Complete 07/13/20 Blood Culture - Preliminary, Resulted No growth after 24 hours . All specim... LILLIANA YBARRA MD Jul 14, 2020 13:26
[2020-07-14 14:00] VITALS: BP 136/81
[2020-07-14] MEDS ORDERED: VANCOMYCIN HCL 750 MG, VIAL MATE ADAPTER 1 EACH in D5W 250 ML IV SCH (16:30)
[2020-07-14] MEDS: DONEPEZIL 5 MG TAB PO SCH (20:25)
[2020-07-14] MEDS: POTASSIUM CHLORIDE 10 MEQ SR TABLET PO SCH (20:25)
[2020-07-14] MEDS: QUEtiapine FUMARATE 50 MG TAB PO SCH (20:25)
[2020-07-14 22:00] VITALS: BP 129/57
[2020-07-15] VITALS (9 sets, daily range): BP systolic 115–161; BP diastolic 50–77
[2020-07-15] MEDS ORDERED: D5W/0.45% SODIUM CHLORIDE 1,000 ML IV SCH (06:00)
[2020-07-15] MEDS: LEVOTHYROXINE 88MCG TABLET (0.088 MG) PO SCH (06:02)
[2020-07-15] MEDS: VANCOMYCIN HCL 1,000 MG, VIAL MATE ADAPTER 1 EACH in D5W 250 ML IV SCH (06:03)
[2020-07-15 06:42] LABS: BASO % 0.6 % (0.0-1.0); EOS # 0.2 10^3/uL (0.0-0.5); EOS % 2.4 % (0.0-3.0); HEMATOCRIT 44.2 % (36.0-47.0); HEMOGLOBIN 14.3 g/dl (12.0-15.5); LYMPH # 1.4 10^3/uL (1.5-5.0); LYMPH % 22.2 % (24.0-44.0); MEAN CORPUSCULAR HEMOGLOBIN 30.5 pg (27.0-33.0); MEAN CORPUSCULAR HGB CONC 32.4 g/dl (32.0-36.5); MEAN CORPUSCULAR VOLUME 94.2 fl (80.0-96.0); MONO # 0.9 10^3/uL (0.0-0.8); MONO % 14.5 % (0.0-5.0); NEUTROPHILS # 3.7 10^3/uL (1.5-8.5); PLATELET COUNT, AUTOMATED 191 10^3/uL (150-450); RED BLOOD COUNT 4.69 10^6/uL (4.00-5.40); WHITE BLOOD COUNT 6.2 10^3/uL (4.0-10.0)
[2020-07-15 07:08] LABS: BLOOD UREA NITROGEN 11 MG/DL (7-18); CALCIUM LEVEL 9.2 MG/DL (8.8-10.2); CARBON DIOXIDE LEVEL 27 MEQ/L (21-32); CHLORIDE LEVEL 107 MEQ/L (98-107); CREATININE FOR GFR 0.79 MG/DL (0.55-1.30); GLOMERULAR FILTRATION RATE > 60.0 (>32); GLUCOSE, FASTING 113 MG/DL (70-100); POTASSIUM SERUM 3.9 MEQ/L (3.5-5.1); SODIUM LEVEL 142 MEQ/L (136-145)
[2020-07-15] MEDS ORDERED: LIDOCAINE 1% MDV 20ML VIAL As Ordered ONE (07:20)
[2020-07-15] MEDS ORDERED: BUPIVACAINE HCL 0.5% 10ML VIAL As Ordered ONE (07:20)
[2020-07-15] MEDS: SUCRALFATE 1 GM TAB PO SCH ×2 (07:30→17:34)
[2020-07-15] MEDS: VALSARTAN 80 MG TAB (DIOVAN) PO SCH (08:10)
[2020-07-15] MEDS: amLODIPine 5 MG TAB PO SCH (08:10)
[2020-07-15] MEDS ORDERED: propofoL 200 MG/20 ML VIAL As Ordered ONE (09:36)
[2020-07-15] MEDS ORDERED: fentaNYL 100 MCG/2 ML INJECTION (J3010) As Ordered ONE (09:36)
[2020-07-15] MEDS ORDERED: LIDOCAINE 2% 100MG/5ML SDV (FOR ANES.) As Ordered ONE (09:40)
[2020-07-15] MEDS ORDERED: ONDANSETRON 4MG/2ML VIAL IV PRN (10:15)
[2020-07-15] MEDS ORDERED: fentaNYL 100 MCG/2 ML INJECTION (J3010) IV PRN (10:15)
[2020-07-15] MEDS ORDERED: LR 1,000 ML IV SCH (10:15)
[2020-07-15] MEDS ORDERED: oxyCODONE 5MG TAB PO PRN (10:15)
--- NOTE | 2020-07-15 10:42 | IPNPDOC ---
Date Seen The patient was seen on 07/15/20. Progress Note UBJECTIVE: Patient is seen and examined at the bedside. Chart has been reviewed. Son-in-law is at the bedside trying to calm her down. She appears to be slightly agitated about going to the operating room and having her toe amputated on the left foot. No issues overnight. No fever or chills. Currently on broad-spectrum antibiotics IV.. She denies any pain at the foot. No purulent discharge. Ov carol OBJECTIVE: PHYSICAL EXAMINATION: VITALS : SEE BELOW GEN: Patient is pleasant, slightly anxious this morning, cooperative, no respiratory distress. No use of respiratory accessory muscles HEENT:. Pupils are equal, round, and reactive to light. Extraocular movements are intact. No nystagmus appreciated. Sclera are nonicteric. no jaundice. Conjunctiva without injection. Nose midline. Nasal turbinates without bogginess. No facial asymmetry. Pharynx pink and moist, no cobblestoning. Neck supple, trachea midline. No lymphadenopathy or thyromegaly appreciated. . HEART: Regular rate and rhythm, +S1, +S2. Nondisplaced point of maximal impulse no pericardial rub LUNGS: Clear to auscultation bilaterally. No wheezes, rales, or rhonchi. Breathing appears symmetric and easy. Patient is speaking in full sentences. No accessory muscle use. ABD: Round, soft, non-tender, non-distended. +Bowel sounds throughout. No rebound or guarding. No costovertebral angle tenderness. EXT: Pulses 2+ bilaterally dorsalis pedis and radial. (+) b/l 1+ pitting edema. left 4-5 partial metatarsal amputation. left medial hallux ulcer with serous drainage no purulence some erythema no induration nontender. SKIN: [place], dry, warm. No rashes. LABORATORY DATA: see below ASSESSMENT AND PLAN: 84 y/o F with chronically deformed left foot, Dementia, bilateral breast cancer, cared for by her daughter and son-in-law, but lives in assisted living housing, presents for amputation of the left hallux due to nonhealing ulcer with failed outpatient antibiotics and debridement. Patient was followed at the wound care center by Dr. Ge in the past,and had left partial incisional metatarsals of the 4-5 digits in 09/[address] Addison. She was seen in her electrical drafter's office today, and referred to [facility] for admission for amputation of the left hallux. She denies fever, chills, pain, purulent discharge,or worsening edema. In the ER, she was afebrile, normal wbc and esr, but 3.7 crp, given iv vanco and iv zosyn with plans for amputation on Friday by Dr. Addison 1.Left hallux osteomyelitis- currently nothing by mouth and IV fluids. Patient is to have amputation of the left hallux due to osteomyelitis and nonhealing wound. Tool Designer, Dr. Addison has been consult for amputation and postoperative management. Patient has been off of antiplatelet therapy since hospital admission. She has been on no anticoagulants and has been On hypoglycemic protocol due to history of diabetes. Consent has been obtained from the patient's son in law and daughter. Pain control, bowel regimen of been provided. Activity per electrical drafter 2.Chronic peripheral neuropathy-has orthotic shoes, but increased risk of injury due to numbness. 3. Preoperative Medical patient is medically optimized to proceed to the op erating room today. We have held her aspirin since admission. She currently denies any acute ischemic complaints such as chest pain, pressure, tightness, lightheadedness or dizziness. She has had no history of coronary artery disease, [place], congestive heart failure to require further evaluation. 4. Hyperkalemia, resolved- received calcium gluconate, kayexalate on admission 5. Hypertension-resumed home meds with holding parameters 6. Hypothyroidism-on synthroid 7. Chronic Dementia/memory patient is having difficulty remaining in the hospital without being agitated and distressed. We have spoken about her high risk of agitation and wanting to sign out AGAINST MEDICAL ADVICE with the patient's family on hospital admission. We are willing to make an exception to the visiting hours of 2-6 PM and allow the family to stay with her 05/05 if needed. We are trying to avoid any sedatives or hypnotics. She remains cooperative, not belligerent with staff and has not been combative if this were to happen. Family has been permitted to stay with the patient while she is in the hospital to avoid chemical restraints and mechanical restraints. 8. Anxiety/Depression, chronic-no suicidal ideation 9. GERD/HH-on PPI 10. History of breast cancer. right mastectomy left lumpectomy with radiation and left mastectomy due to local recurrence, on surveillance at the [facility] 11. H/O TIA-due to planned left hallux amputation, hold ASA. 12. Obesity BMI 34.9 EMILIE. CPAP-complicating care code status: DNR DNI. VS, I&O, 24H, [facility] Vital Signs/I&O Vital Signs Date Time Temp Pulse Resp B/P (MAP) Pulse Ox O2 Delivery O2 Flow Rate FiO2 07/15/20 10:27 67 18 113/53 (73) 94 Room Air 07/15/20 10:26 100.1 l I&O- Last 24 Hours up to 6 AM 07/15/20 06:00 Intake Total 620 ml Output Total 825 ml Balance -205 ml Laboratory Data 24H LABS Laboratory Tests 2 07/15/20 06:16: Immature Granulocyte % (Auto) 0.3, Neutrophils (%) (Auto) 60.0, Lymphocytes (%) (Auto) 22.2L, Monocytes (%) (Auto) 14.5H, Eosinophils (%) (Auto) 2.4, Basophils (%) (Auto) 0.6, Neutrophils # (Auto) 3.7, Lymphocytes # (Auto) 1.4L, Monocytes # (Auto) 0.9H, Eosinophils # (Auto) 0.2, Basophils # (Auto) 0.0, Nucleated Red Blood Cells % (auto) 0.0, Anion Gap 8, Glomerular Filtration Rate > 60.0, Calcium Level 9.2 CBC/BMP Laboratory Tests 07/15/20 06:16 Microbiology Microbiology 07/15/20 Gram Stain, Received Pending 07/15/20 Wound Culture, Received Pending 07/15/20 Anaerobic Culture, Received Pending 07/13/20 Blood Culture - Preliminary, Resulted No growth after 24 hours . All specim... 07/13/20 Urine Culture - Final, Complete 07/13/20 Blood Culture - Preliminary, Resulted No growth after 24 hours . All specim... LILLIANA YBARRA MD Jul 15, 2020 10:34
[2020-07-15] MEDS: ALPRAZolam 0.25 MG TAB PO SCH ×2 (12:17→20:30)
[2020-07-15] MEDS: busPIRone 5 MG TAB PO SCH ×3 (12:17→20:29)
[2020-07-15] MEDS: GABAPENTIN 100 MG CAP PO SCH ×3 (12:17→20:29)
[2020-07-15] MEDS: DOCUSATE SODIUM 100 MG CAP PO SCH ×2 (12:17→20:29)
[2020-07-15] MEDS: CYANOCOBALAMIN 500 MCG TAB PO SCH (12:17)
[2020-07-15] MEDS: PANTOPRAZOLE 40MG TAB (PROTONIX) PO SCH (12:17)
[2020-07-15] MEDS: DULoxetine 30 MG CAP (CYMBALTA) PO SCH (12:17)
[2020-07-15] MEDS: DONEPEZIL 5 MG TAB PO SCH (20:30)
[2020-07-15] MEDS: QUEtiapine FUMARATE 50 MG TAB PO SCH (20:30)
[2020-07-15] MEDS: POTASSIUM CHLORIDE 10 MEQ SR TABLET PO SCH (20:30)
[2020-07-16] VITALS: BP 141/63
[2020-07-16 05:28] LABS: BASO % 0.3 % (0.0-1.0); EOS # 0.2 10^3/uL (0.0-0.5); EOS % 2.6 % (0.0-3.0); HEMATOCRIT 40.7 % (36.0-47.0); HEMOGLOBIN 13.1 g/dl (12.0-15.5); LYMPH # 1.1 10^3/uL (1.5-5.0); LYMPH % 16.3 % (24.0-44.0); MEAN CORPUSCULAR HGB CONC 32.2 g/dl (32.0-36.5); MEAN CORPUSCULAR VOLUME 96.2 fl (80.0-96.0); MONO # 0.8 10^3/uL (0.0-0.8); MONO % 11.9 % (0.0-5.0); NEUTROPHILS # 4.7 10^3/uL (1.5-8.5); NEUTROPHILS % 68.6 % (36.0-66.0); PLATELET COUNT, AUTOMATED 202 10^3/uL (150-450); RED BLOOD COUNT 4.23 10^6/uL (4.00-5.40); WHITE BLOOD COUNT 6.8 10^3/uL (4.0-10.0)
[2020-07-16 05:43] LABS: BLOOD UREA NITROGEN 10 MG/DL (7-18); CALCIUM LEVEL 9.1 MG/DL (8.8-10.2); CARBON DIOXIDE LEVEL 30 MEQ/L (21-32); CHLORIDE LEVEL 110 MEQ/L (98-107); CREATININE FOR GFR 0.73 MG/DL (0.55-1.30); GLOMERULAR FILTRATION RATE > 60.0 (>32); GLUCOSE, FASTING 104 MG/DL (70-100); POTASSIUM SERUM 3.9 MEQ/L (3.5-5.1); SODIUM LEVEL 143 MEQ/L (136-145); VANCOMYCIN LEVEL TROUGH 5.8 UG/ML (10.0-20.0)
[2020-07-16] MEDS: VANCOMYCIN HCL 1,000 MG, VIAL MATE ADAPTER 1 EACH in D5W 250 ML IV SCH (05:49)
[2020-07-16] MEDS: LEVOTHYROXINE 88MCG TABLET (0.088 MG) PO SCH (05:49)
[2020-07-16 06:00] VITALS: BP 138/64
[2020-07-16] MEDS ORDERED: VANCOMYCIN HCL 500 MG in D5W MINI-BAG PLUS 100 ML IV ONE (07:00)
[2020-07-16] MEDS: VALSARTAN 80 MG TAB (DIOVAN) PO SCH (07:58)
[2020-07-16] MEDS: amLODIPine 5 MG TAB PO SCH (08:00)
[2020-07-16] MEDS: DULoxetine 30 MG CAP (CYMBALTA) PO SCH (08:00)
[2020-07-16] MEDS: CYANOCOBALAMIN 500 MCG TAB PO SCH (08:00)
[2020-07-16] MEDS: PANTOPRAZOLE 40MG TAB (PROTONIX) PO SCH (08:00)
[2020-07-16] MEDS: SUCRALFATE 1 GM TAB PO SCH ×2 (08:00→16:36)
[2020-07-16] MEDS: ALPRAZolam 0.25 MG TAB PO SCH ×2 (08:00→20:36)
[2020-07-16] MEDS: DOCUSATE SODIUM 100 MG CAP PO SCH ×2 (08:01→20:36)
[2020-07-16] MEDS: GABAPENTIN 100 MG CAP PO SCH ×3 (08:01→20:37)
[2020-07-16] MEDS: busPIRone 5 MG TAB PO SCH ×3 (08:05→20:36)
--- NOTE | 2020-07-16 10:32 | IPNPDOC ---
Date Seen The patient was seen on 07/16/20. Progress Note SUBJECTIVE: No fever, chills, no white count. Post op day #1. Denies pain. Anxious to go home. Awaiting microbiology result. Dressing changes and wound care per manager material, Dr. addison. OBJECTIVE: PHYSICAL EXAMINATION: VITALS : SEE BELOW GEN: Patient is pleasant, slightly anxious this morning, cooperative, no respiratory distress. No use of respiratory accessory muscles HEENT:. Pupils are equal, round, and reactive to light. Extraocular movements are intact. No nystagmus appreciated. Sclera are nonicteric. no jaundice. Conjunctiva without injection. Nose midline. Nasal turbinates without bogginess. No facial asymmetry. Pharynx pink and moist, no cobblestoning. Neck supple, trachea midline. No lymphadenopathy or thyromegaly appreciated. . HEART: Regular rate and rhythm, +S1, +S2. Nondisplaced point of maximal impulse no pericardial rub LUNGS: Clear to auscultation bilaterally. No wheezes, rales, or rhonchi. Breathing appears symmetric and easy. Patient is speaking in full sentences. No accessory muscle use. ABD: Round, soft, non-tender, non-distended. +Bowel sounds throughout. No rebound or guarding. No costovertebral angle tenderness. EXT: Pulses 2+ bilaterally dorsalis pedis and radial. (+) b/l 1+ pitting edema. left foot bandaged some erythema no induration nontender. SKIN: [place], dry, warm. No rashes. LABORATORY DATA: see below ASSESSMENT AND PLAN: 84 y/o F with chronically deformed left foot, Dementia, bilateral breast cancer, cared for by her daughter and son-in-law, but lives in assisted living housing, presents for amputation of the left hallux due to nonhealing ulcer with failed outpatient antibiotics and debridement. Patient was followed at the wound care center by Dr. Ge in the past,and had left partial incisional metatarsals of the 4-5 digits in 09/[address] Addison. She was seen in her manager material's office today, and referred to [facility] for admission for amputation of the left hallux. She denies fever, chills, pain, purulent discharge,or worsening edema. In the ER, she was afebrile, normal wbc and esr, but 3.7 crp, given iv vanco and iv zosyn s/p amputation Friday07/15/[address] addison 1.Left hallux osteomyelitis- currently on broad-spectrum antibiotics until cultures are available, patient is postop day #1 status post amputation by Dr. addison manager material. Postop management and wound care per manager material. Patient has no pain but will be given Tylenol as needed. She is at risk of encephalopathy due to opioids and therefore will minimize patient narcotics. She has passed a home safety evaluation and may just be discharged back to assisted living once cleared by surgery 2.Chronic peripheral neuropathy-has orthotic shoes, but increased risk of injury due to numbness. 3. Hypertension-resumed home meds with holding parameters 4. Hypothyroidism-on synthroid 5. Chronic Dementia/memory -family has been permitted to stay with her due to chronic dementia. 6. Anxiety/Depression, chronic-no suicidal ideation 7. GERD/HH-on PPI 8. History of breast cancer. right mastectomy left lumpectomy with radiation and left mastectomy due to local recurrence, on surveillance at the [facility] 9. H/O TIA-due to planned left hallux amputation, hold ASA. 10. Obesity BMI 34.9 EMILIE. CPAP-complicating care code status: DNR DNI. Disposition may be discharged back to assisted living once cleared by manager material. VS, I&O, 24H, Gloria Vital Signs/I&O Vital Signs Date Time Temp Pulse Resp B/P (MAP) Pulse Ox O2 Delivery O2 Flow Rate FiO2 07/16/20 08:00 87 07/16/20 07:58 165/72 07/16/20 06:00 98.6 16 94 Room Air I&O- Last 24 Hours up to 6 AM 07/16/20 06:00 Intake Total 1295 ml Output Total 1385 ml Balance -90 ml Laboratory Data 24H LABS Laboratory Tests 2 07/16/20 05:07: Immature Granulocyte % (Auto) 0.3, Neutrophils (%) (Auto) 68.6H, Lymphocytes (%) (Auto) 16.3L, Monocytes (%) (Auto) 11.9H, Eosinophils (%) (Auto) 2.6, Basophils (%) (Auto) 0.3, Neutrophils # (Auto) 4.7, Lymphocytes # (Auto) 1.1L, Monocytes # (Auto) 0.8, Eosinophils # (Auto) 0.2, Basophils # (Auto) 0.0, Nucleated Red Blood Cells % (auto) 0.0, Anion Gap 3L, Glomerular Filtration Rate > 60.0, Calcium Level 9.1, Vancomycin Level Trough 5.8L CBC/BMP Laboratory Tests 07/16/20 05:07 Microbiology Microbiology 07/15/20 Gram Stain - Final, Resulted 07/15/20 Wound Culture, Resulted Pending 07/15/20 Anaerobic Culture, Resulted Pending 07/13/20 Blood Culture - Preliminary, Resulted No Growth after 48 hours. All Specime... 07/13/20 Urine Culture - Final, Complete 07/13/20 Blood Culture - Preliminary, Resulted No Growth after 48 hours. All Specime... LILLIANA YBARRA MD Jul 16, 2020 10:32
[2020-07-16] MEDS ORDERED: ACETAMINOPHEN 500 MG TAB PO ONE (11:00)
[2020-07-16 14:00] VITALS: BP 156/60
[2020-07-16] MEDS: ACETAMINOPHEN 500 MG TAB PO SCH ×2 (16:36→20:37)
[2020-07-16 18:00] VITALS: BP 175/93
[2020-07-16] MEDS: POTASSIUM CHLORIDE 10 MEQ SR TABLET PO SCH (20:36)
[2020-07-16] MEDS: DONEPEZIL 5 MG TAB PO SCH (20:37)
[2020-07-16] MEDS: QUEtiapine FUMARATE 50 MG TAB PO SCH (20:37)
[2020-07-16 22:00] VITALS: BP 145/71
[2020-07-17] MEDS ORDERED: VANCOMYCIN HCL 1,000 MG, VIAL MATE ADAPTER 1 EACH in D5W 250 ML IV SCH ×3
[2020-07-17 02:00] VITALS: BP 148/70
[2020-07-17] MEDS: LEVOTHYROXINE 88MCG TABLET (0.088 MG) PO SCH (05:33)
[2020-07-17 05:58] LABS: BASO % 0.5 % (0.0-1.0); EOS # 0.2 10^3/uL (0.0-0.5); HEMATOCRIT 42.2 % (36.0-47.0); HEMOGLOBIN 13.4 g/dl (12.0-15.5); LYMPH # 1.2 10^3/uL (1.5-5.0); LYMPH % 31.2 % (24.0-44.0); MEAN CORPUSCULAR HEMOGLOBIN 30.6 pg (27.0-33.0); MEAN CORPUSCULAR HGB CONC 31.8 g/dl (32.0-36.5); MEAN CORPUSCULAR VOLUME 96.3 fl (80.0-96.0); MONO # 0.5 10^3/uL (0.0-0.8); MONO % 12.7 % (0.0-5.0); NEUTROPHILS # 1.8 10^3/uL (1.5-8.5); NEUTROPHILS % 49.3 % (36.0-66.0); PLATELET COUNT, AUTOMATED 183 10^3/uL (150-450); RED BLOOD COUNT 4.38 10^6/uL (4.00-5.40); WHITE BLOOD COUNT 3.7 10^3/uL (4.0-10.0)
[2020-07-17 06:00] VITALS: BP 107/60
[2020-07-17 06:19] LABS: BLOOD UREA NITROGEN 9 MG/DL (7-18); CALCIUM LEVEL 8.7 MG/DL (8.8-10.2); CARBON DIOXIDE LEVEL 27 MEQ/L (21-32); CHLORIDE LEVEL 112 MEQ/L (98-107); CREATININE FOR GFR 0.65 MG/DL (0.55-1.30); GLOMERULAR FILTRATION RATE > 60.0 (>32); GLUCOSE, FASTING 101 MG/DL (70-100); POTASSIUM SERUM 3.5 MEQ/L (3.5-5.1); SODIUM LEVEL 142 MEQ/L (136-145)
[2020-07-17] MEDS: amLODIPine 5 MG TAB PO SCH (07:57)
[2020-07-17] MEDS: SUCRALFATE 1 GM TAB PO SCH (07:57)
[2020-07-17] MEDS: CYANOCOBALAMIN 500 MCG TAB PO SCH (07:57)
[2020-07-17 07:58] VITALS: BP 166/73
[2020-07-17] MEDS: VALSARTAN 80 MG TAB (DIOVAN) PO SCH (07:58)
[2020-07-17] MEDS: GABAPENTIN 100 MG CAP PO SCH (07:58)
[2020-07-17] MEDS: DULoxetine 30 MG CAP (CYMBALTA) PO SCH (07:58)
[2020-07-17] MEDS: PANTOPRAZOLE 40MG TAB (PROTONIX) PO SCH (07:58)
[2020-07-17] MEDS: DOCUSATE SODIUM 100 MG CAP PO SCH (07:58)
[2020-07-17] MEDS: ALPRAZolam 0.25 MG TAB PO SCH (07:58)
[2020-07-17] MEDS: ACETAMINOPHEN 500 MG TAB PO SCH (07:59)
[2020-07-17] MEDS: busPIRone 5 MG TAB PO SCH (07:59)
[2020-07-17] MEDS ORDERED: DOXY100T PO (08:02)
[2020-07-17] MEDS ORDERED: BACITAB PO (08:02)
[2020-07-17] MEDS ORDERED: DOXYCYCLINE HYCLATE 100MG TABLET PO SCH (09:00)
[2020-07-17 10:00] VITALS: BP 146/96
--- NOTE | 2020-07-17 13:39 | DS.PDOC ---
Discharge Summary General Date of Admission Jul 13, 2020 at 13:32 Date of Discharge 07/17/20 Discharge Summary DISCHARGE DIAGNOSES: Left hallux osteomyelitis requiring amputation Hypertension Hypothyroidism Dementia/memory loss Anxiety Depression GERD/HH/chronic nausea History of breast cancer. right mastectomy left lumpectomy with radiation and left mastectomy due to local recurrence Chronic left foot wound. Stage IV ulcer. Osteomyelitis. H/O TIA EMILIE. CPAP. H/O neuropathy DISCHARGE MEDICATIONS: See below DISCHARGE INSTRUCTIONS: Patient is to follow with Dr. Addison for post op management within 5 days of hospital discharge. she is to complete 2 weeks of antibiotics. Primary care physician follow-up within 5 days HISTORY OF PRESENTING ILLNESS: 84 y/o F with chronically deformed left foot, Dementia, bilateral breast cancer, cared for by her daughter and son-in-law, but lives in assisted living housing, presents for amputation of the left hallux due to nonhealing ulcer with failed outpatient antibiotics and debridement. Patient was followed at the wound care center by Dr. Ge in the past,and had left partial incisional metatarsals of the 4-5 digits in 09/[address] Addison. She was seen in her cobol engineer's office today, and referred to [facility] for admission for amputation of the left hallux. She denies fever, chills, pain, purulent discharge,or worsening edema. In the ER, she was afebrile, normal wbc and esr, but 3.7 crp, given iv vanco and iv zosyn s/p amputation Friday07/15/[address] addison HOSPITAL COURSE: Left hallux osteomyelitis- S/P IV VANCO AND ZOSYN. status post amputation of the left hallux on 07/15/[address] addison cobol engineer. Postoperative management per cobol engineer. Patient is activity as tolerated and doing well with her walker at home. Patient has been cleared by physical therapy for discharge back to assisted living. Wound culture came back with MRSA sensitive to doxycycline. She has been prescribed doxycycline for 14 days. To prevent C. difficile colitis. Patient has been started on Bacid 1 tablet every before meals at bedtime for 14 days Chronic peripheral neuropathy-has orthotic shoes, but increased risk of injury due to numbness. Hypertension-resumed home meds with holding parameters Hypothyroidism-on synthroid Chronic Dementia/memory -family has been permitted to stay with her due to chronic dementia. Anxiety/Depression, chronic-no suicidal ideation GERD/HH-on PPI History of breast cancer. right mastectomy left lumpectomy with radiation and left mastectomy due to local recurrence, on surveillance at the [facility] H/O TIA-due to planned left hallux amputation, held ASA preoperatively. . He has been receiving back on aspirin postoperatively. Obesity BMI 34.9 EMILIE. CPAP-complicating care code status: DNR DNI. Disposition: discharged back to assisted living DISCHARGE PHYSICAL EXAMINATION: VITALS : SEE BELOW GEN: Patient is pleasant, slightly anxious this morning, cooperative, no respiratory distress. No use of respiratory accessory muscles HEENT:. Pupils are equal, round, and reactive to light. Extraocular movements are intact. No nystagmus appreciated. Sclera are nonicteric. no jaundice. Conjunctiva without injection. Nose midline. Nasal turbinates without bogginess. No facial asymmetry. Pharynx pink and moist, no cobblestoning. Neck supple, trachea midline. No lymphadenopathy or thyromegaly appreciated. . HEART: Regular rate and rhythm, +S1, +S2. Nondisplaced point of maximal imp ulse no pericardial rub LUNGS: Clear to auscultation bilaterally. No wheezes, rales, or rhonchi. Yadira athing appears symmetric and easy. Patient is speaking in full sentences. No accessory muscle use. ABD: Round, soft, non-tender, non-distended. +Bowel sounds throughout. No rebound or guarding. No costovertebral angle tenderness. EXT: Pulses 2+ bilaterally dorsalis pedis and radial. (+) b/l 1+ pitting edema. left foot bandaged some erythema no induration nontender. SKIN: [place], dry, warm. No rashes. LABORATORY DATA: see below IMAGING STUDIES: PROCEDURE INFORMATION: Exam: XR Left Foot Complete Exam date and time: 07/13/2020 12:30 PM Age: 84 years old Clinical indication: Condition or disease; Foot deformities; Type not specified; Left; Prior surgery; Surgery date: 6+ months; Surgery type: Granddaughter said she has had foot trouble her entire life with bones removed many years ago. Did not know her underlying disease process. ; Additional info: Swelling of foot, ulcer to 1st toe TECHNIQUE: Imaging protocol: XR Left foot. Views: 3 or more views. COMPARISON: XA Foot, Ap, Lat 09/23/2018 2:01 PM FINDINGS: Bones/joints: There has been transmetatarsal amputations involving the 4th and 5th digits. There has been phalangeal resection of the 3rd digit. The toes are clenched of the 1st and 2nd digits. There is diffuse osteopenia. Extensive arthritic changes seen throughout the midfoot, hindfoot and forefoot including the tibiotalar joint. Soft tissues: There is no soft tissue air or definite ulceration. IMPRESSION: Osteopenia, arthritis and prior amputations. Electronically signed by: Mendoza Woody On 07/13/2020 12:44:43 PM TIME SPENT ON DISCHARGE 30 MINUTES Vital Signs/I&Os Vital Signs Date Time Temp Pulse Resp B/P (MAP) Pulse Ox O2 Delivery O2 Flow Rate FiO2 07/17/20 10:00 98.8 66 20 146/96 (113) 93 Room Air I&O- Last 24 Hours up to 6 AM 07/17/20 06:00 Intake Total 800 ml Output Total 1600 ml Balance -800 ml Laboratory Data Labs 24H Laboratory Tests 2 07/17/20 05:28: Immature Granulocyte % (Auto) 0.3, Neutrophils (%) (Auto) 49.3, Lymphocytes (%) (Auto) 31.2, Monocytes (%) (Auto) 12.7H, Eosinophils (%) (Auto) 6.0H, Basophils (%) (Auto) 0.5, Neutrophils # (Auto) 1.8, Lymphocytes # (Auto) 1.2L, Monocytes # (Auto) 0.5, Eosinophils # (Auto) 0.2, Basophils # (Auto) 0.0, Nucleated Red Blood Cells % (auto) 0.0, Anion Gap 3L, Glomerular Filtration Rate > 60.0, Calcium Level 8.7L CBC/BMP Laboratory Tests 07/17/20 05:28 Microbiology Microbiology 07/15/20 Gram Stain - Final, Complete 07/15/20 Wound Culture - Final, Complete Staph.aureus Methicillin Resis 07/15/20 Anaerobic Culture - Final, Complete 07/13/20 Blood Culture - Preliminary, Resulted No Growth after 72 hours. All specime... 07/13/20 Urine Culture - Final, Complete 07/13/20 Blood Culture - Preliminary, Resulted No Growth after 72 hours. All specime... Discharge Medications Scheduled Alprazolam (Xanax) 0.25 Mg Tab, 0.25 MG PO BID, (Reported) Amlodipine Besylate (Amlodipine Besylate) 5 Mg Tablet, 5 MG PO DAILY, (Reported) Aspirin (Aspir 81) 81 Mg Tablet.dr, 81 MG PO DAILY, (Reported) Buspirone HCl (Buspirone HCl) 5 Mg Tab, 5 MG PO TID, (Reported) Cyanocobalamin (Vitamin B-12) (Vitamin B-12) 500 Mcg Tablet, 500 MCG PO DAILY, (Reported) Docusate Sodium (Docusate Sodium) 100 Mg Capsule, 100 MG PO BID, (Reported) Donepezil HCl (Aricept) 5 Mg Tab, 5 MG PO QHS, (Reported) Doxycycline Hyclate (Doxycycline Hyclate) 100 Mg Tablet, 100 MG PO BID Duloxetine Hcl (Cymbalta) 60 Mg Cap, 60 MG PO DAILY, (Reported) Gabapentin (Gabapentin) 100 Mg Capsule, 100 MG PO TID, (Reported) L.acidoph/L.bulg/B.bif/S.therm (Bacid Caplet) 1 Each Tablet, 1 TAB PO WM Levothyroxine Sodium (Synthroid) 88 Mcg Tab, 88 MCG PO DAILY, (Reported) Nystatin (Nystatin) 15 Gm Cream..g., 1 APLCT TOP BID, (Reported) APPLY TO RASH ON LEG Pantoprazole Sodium (Pantoprazole Sodium) 40 Mg Tablet.dr, 40 MG PO DAILY, (Reported) Potassium Chloride (Potassium Chloride) 20 Meq Tab.er.prt, 20 MEQ PO QPM, (Reported) Quetiapine Fumarate (Quetiapine Fumarate) 50 Mg Tablet, 50 MG PO QHS, (Reported) Sucralfate (Carafate) 1 Gm Tab, 1 GM PO BID, (Reported) 1 HOUR BEFORE BREAKFAST AND DINNER Valsartan (Valsartan) 160 Mg Tablet, 160 MG PO DAILY, (Reported) Allergies Coded Allergies: SEASONAL ALLERGIES (Verified Allergy, Mild, 09/16/18) LILLIANA YBARRA MD Jul 17, 2020 13:34
--- NOTE | 2020-07-19 09:36 | RO ---
DATE OF OPERATION: 07/15/2020 SURGEON: Ying Addison DPM POULTRYMAN: None. PREOPERATIVE DIAGNOSIS: Left hallux osteomyelitis. POSTOPERATIVE DIAGNOSIS: Left hallux osteomyelitis. PROCEDURE: Left hallux amputation. ANESTHESIA: Monitored anesthesia care. PREOPERATIVE INJECTION: 17 cc of a 1:1 mix of 1% Lidocaine plain and 0.5% Marcaine plain. ESTIMATED BLOOD LOSS: 5 mL. MATERIALS: 3-0 nylon. INJECTABLES: None. SPECIMENS: Left hallux. COMPLICATIONS: None. CONDITION: Stable. OPERATIVE INDICATIONS: Libby Pacheco is an 84-year-old female who was admitted to the hospital from my office due to left hallux osteomyelitis. She presents today for a surgical correction. The patient's side and site were identified and marked in the preoperative area. Consent was obtained from the daughter who is health care proxy over the phone. Risks, complications, and alternatives were explained to the patient and her daughter in detail and all questions were answered. PROCEDURE: The patient was brought to our operating room and placed on the stretcher in supine position. Monitored anesthesia care was delivered by the anesthesia team. Preop injection of 17 cc of 1:1 mix with 1% Lidocaine plain and 0.5% Marcaine plain were injected into the left foot. Her foot was prepped and draped in normal sterile fashion. A tourniquet was applied the left ankle but was not inflated during the procedure. An elliptical incision was made around the left hallux and the toe was disarticulated at the metatarsal phalangeal joint. The bone in the proximal phalanx was inspected and was fractured and necrotic with obvious signs of an osteomyelitis. This was sent for pathology. Culture swabs were taken of the wound. A Bovie was used to cauterize small bleeding vessels. The area was irrigated with normal saline and the incision was closed with 3-0 nylon. Sterile dressings were applied. The patient was brought to PACU with vital signs stable and neurovascular status intact. She will be readmitted to the floor. We will follow. BHARATH
== END 2020-07-17 12:06 | disposition home health service (06) | DRG 504 ==
LOC: M ED 10:24 → M ED INP 13:32 → ENRESERV 14:42 → M MSPAV 16:04
PROVIDERS: ADMIT General Practice; ATTEND General Practice
PROC: 0Y6Q0Z0 Detachment at Left 1st Toe, Complete, Open Approach (ICD-10-PCS; principal; 2020-07-15 08:30)
DX: M86.9 Osteomyelitis, unspecified (principal); F03.91 Unspecified dementia, unspecified severity, with behavioral disturbance; L97.528 Non-pressure chronic ulcer of other part of left foot with other specified severity; Z85.3 Personal history of malignant neoplasm of breast; I10 Essential (primary) hypertension; E03.9 Hypothyroidism, unspecified; F41.9 Anxiety disorder, unspecified; F32.9 Major depressive disorder, single episode, unspecified; K21.9 Gastro-esophageal reflux disease without esophagitis; Z66 Do not resuscitate; J30.2 Other seasonal allergic rhinitis; G47.33 Obstructive sleep apnea (adult) (pediatric); Z86.73 Personal history of transient ischemic attack (TIA), and cerebral infarction without residual deficits; G62.9 Polyneuropathy, unspecified; Z98.49 Cataract extraction status, unspecified eye; Z90.49 Acquired absence of other specified parts of digestive tract; Z89.422 Acquired absence of other left toe(s); E87.5 Hyperkalemia; E66.9 Obesity, unspecified; Z68.34 Body mass index [BMI] 34.0-34.9, adult; Z92.3 Personal history of irradiation; Z79.82 Long term (current) use of aspirin; Z79.899 Other long term (current) drug therapy; Z90.13 Acquired absence of bilateral breasts and nipples

== ENCOUNTER → 2021-12-17 | Outpatient (REF) | payer MEDICARE, MEDICAID ==
[~2021-12-17] MED LIST changes: -AMIT10TA PO; +AMIT10TA7 PO; +AMLO1TAB24 PO; +ASPI81TA86 PO; +BACITAB PO; +BACT800T5 PO; -CYMB60CA3 PO; +CYMB60CA4 PO; +DOCU100C16 PO; +DOXY100T PO; +GABA-282 PO; -GABA-843 PO; +LOSA25TA13 PO; -LOSA25TA14 PO; +MECL-136 PO; -MECL12.589 PO; +NYST10CR TOP; +OMEP40CA4 PO; -OMEP40CA97 PO; +POTA-151 PO; +QUET50TA4 PO; +VALS1TAB67 PO; +VITA500T41 PO
== END ==
LOC: M SFHCWOUN 15:30
PROVIDERS: ATTEND Surgery
DX: L89.893 Pressure ulcer of other site, stage 3 (principal); M86.172 Other acute osteomyelitis, left ankle and foot